=== PATIENT | female | born 1990 | race Caucasian/White ===

== ENCOUNTER 2020-12-16 19:03 | Inpatient (IN) ==
[2020-12-16] MEDS ORDERED: OXYTOCIN 30 UNITS/500 ML BAG IV PRN (20:21)
--- NOTE | 2020-12-16 20:40 | History & Physical Report ---
Date of Service December 16, 2020 Assessment & Plan (1) PROM (premature rupture of membranes): 30 y/o G1 at 38 5/7 wga presenting after SROM VSS Fetus cat 1 Labor - offered ambulation to see if progresses spontaneously or pitocin as she is beatriz, after discussion pt will walk for few hours and recheck. Understands she may still require pitocin after, verbalized understanding GBS neg Epidural PRN History of Present Illness Chief Complaint: LOF Primary Care Provider: Pattie Cummings MD 30 y/o G1 at 38 5/7 wga w/ CELSO 12/25 by LMP c/w 1st tri US presents w/ c/o multiple large gushes of fluid beginning around 5pm this evening. At first thought it was urine, but continued to soak through multiple pairs of pants afterwards. +FM and some back ctx; denies VB PNI: None Past [employer] Hx: G1 Periods q28-30d 05/2020 neg cytology. Reports hx colpo >5 yrs ago and normal since Denies hx STIs Allergies Allergy/AdvReac Type Severity Reaction Status Date / Time No Known Allergies Verified 12/16/20 19:25 Home Medications Medication Instructions Recorded Confirmed Type prenat.vits,enedina,xle-pyhy-rmyog 1 tab PO DAILY 05/21/20 12/16/20 History breast pump #1 ea 10/17/20 12/12/20 Rx Patient History Medical History (Updated 12/16/20 @ 20:37 by Le Hurd MD) Acid reflux no meds Bloody stools only happens when has fast food Surgical History History of esophagogastroduodenoscopy (EGD) History of tonsillectomy History of wisdom tooth extraction Family History Uncle Family history of diabetes mellitus Aunt Family history of diabetes mellitus Grandfather (Paternal) Family history of diabetes mellitus Stroke Grandfather (Maternal) Family history of diabetes mellitus Myocardial infarction Father Family hx colonic polyps Grandmother (Paternal) Breast cancer Other No family history of adverse response to anesthesia Denies family history of Ovarian cancer Prostate cancer Colorectal cancer Social History Smoking Status: Never smoker Second Hand Exposure: No; Hx Alcohol Use: Yes Alcohol type: wine and hard liquor Hx Substance Use: No Preferred Language: Maltese Communication Ability: Effective Physical Biochemist Required: No Beliefs That Will Affect Care: None marital status: marital status details: Ren (28) [phone] Current Living Situation: Spouse Current Living Situation Comment: ilves with spouse, 1 dog, 1 cat, 1 frog, spouse to change litter current occupational status: employed current occupation: [employer]- [employer] Other Information That Helps Us Care for You: No Feels Safe at Home: Yes Safety Concerns: Feels Safe At This Time Assistive Devices: None Physical Exam Constitutional: WD/WN, vitals as above Respiratory: normal respiratory effort; no respiratory distress and no labored breathing Psychiatric: A+Ox3, euthymic affect Genitourinary: OB Exam Abdomen: + vertex (confirmed by BSUS) and + estimated weight (8-9lb) Manual OB Exam: + cervical dilation (1.5), + cervical effacement 70%, + station high and + amniotic fluid (grossly ruptured) clear and nitrazine positive OB Exam Monitor Tracing: + external FHT monitor used, + external uterine monitor used (2-4min) and + category I (140/mod/+accel/-decel) Results & Data ([facility]) Vital Signs (Past 12 Hours) Vital Signs Temp Pulse Resp BP 12/16/20 19:29 76 132/83 12/16/20 19:18 98.1 F 71 18 137/88 Laboratory Results OB Labs: Blood Type A Positive 05/30/20 Antibody Screen NEGATIVE 05/30/20 Hemoglobin 12.4 g/dL (12.0-16.0) 10/03/20 Hematocrit 36.7 % (37-47) L 10/03/20 Mean Corpuscular Volume 90.4 fL (80-100) 05/30/20 Platelet Count 226 K/uL (130-400) 05/30/20 Rubella IgG Antibody Immune (Immune) 05/30/20 Rapid Plasma Reagin Nonreactive (Nonreactive) 05/30/20 Hepatitis B Surface Antigen Neg (Neg) 05/30/20 HIV (1&2) Ab and P24 Ag, 4th Gener Neg (Neg) 05/30/20 Glucose 1 Hour 50 gm Load 112 mg/dl (70-130) 10/03/20 OB Optional Labs: Chlamydia trachomatis RNA NOT DETECTED (NOT DETECTED) 05/22/20 Neisseria gonorrhoeae RNA NOT DETECTED (NOT DETECTED) 05/22/20 Thyroid Stimulating Hormone (TSH) 0.975 uIu/ml (0.300-4.500) 12/20/18 Labs Reviewed: panorama low risk. declines cf/sma declined AFP GBS neg Diagnostic Findings Anterior placenta Code Status & VTE Plan VTE Prophylaxis Plan VTE Prophylaxis will be ordered: Yes Coding Level of Care Code None Diagnoses PROM (premature rupture of membranes) O42.90
[2020-12-16 20:41] LABS: Hematocrit (blood only) 35.4 % (37-47); Hemoglobin 12.2 g/dL (12.0-16.0); Mean Corpuscular Hemoglobin 31.9 pg (25-34); Mean Corpuscular Hgb Conc 34.5 g/dL (32-36); Mean Corpuscular Volume 92.4 fL (80-100); Mean Platelet Volume 12.3 fL (7.4-10.4); Platelet Count 179 K/uL (130-400); RDW Coefficient of Variation 14.1 % (11.5-14.5); RDW Standard Deviation 47.5 fL (36.4-46.3); Red Blood Count 3.83 M/uL (4.2-5.4); White Blood Count 10.93 K/uL (4.8-10.8)
[2020-12-16] MEDS ORDERED: ACETAMINOPHEN 500 MG TAB PO PRN (22:15)
--- NOTE | 2020-12-16 22:15 | Labor Progress Brief Note ---
Date of Service December 16, 2020 Subjective ctx worsening in intensity Assessment & Plan (1) PROM (premature rupture of membranes): 30 y/o G1 at 38 5/7 wga presenting after SROM VSS Fetus cat 1 Labor - was only able to walk for 45 min due to lab getting blood but ctx are getting more painful, there was small progression in change. Can continue to walk some more and see if kicks in GBS neg Epidural PRN Admission and Anticipated Discharge Date Admission Date: December 16, 2020 Physical Exam Constitutional: WD/WN, vitals as above Respiratory: normal respiratory effort; no respiratory distress and no labored breathing Psychiatric: A+Ox3, euthymic affect Genitourinary: Manual OB Exam: + cervical dilation 2 cm, + cervical effacement 70% and + station high OB Exam Monitor Tracing: + external FHT monitor used, + external uterine monitor used (2-5min) and + category I (135/mod/+accel/- decel) Results & Data ([facility]) Vital Signs (Past 12 Hours) Vital Signs Temp Pulse Resp BP 12/16/20 20:36 97.9 F 18 12/16/20 19:29 76 132/83 12/16/20 19:18 98.1 F 71 18 137/88 Coding Level of Care Code None Diagnoses PROM (premature rupture of membranes) O42.90
[2020-12-16] MEDS ORDERED: fentaNYL citrate 100 MCG/2 ML VIAL ONE (23:25)
[2020-12-16] MEDS ORDERED: BUPIVACAINE 0.25% 30 ML VIAL ONE (23:25)
[2020-12-16] MEDS ORDERED: SODIUM CHLORIDE 0.9% INJ 10 ML VIAL ONE (23:25)
[2020-12-16] MEDS ORDERED: ePHEDrine sulfate 50 MG/ML AMP ONE (23:25)
[2020-12-16] MEDS: LACTATED RINGER'S 1,000 ML IV PRN (23:26)
[2020-12-16] MEDS ORDERED: fentaNYL 2MCG/ML ROPIVACAINE 1.25MG/ML 100 ML BAG EPI ONE (23:26)
[2020-12-16] MEDS ORDERED: NALOXONE HCL 1 MG in SODIUM CHLORIDE 0.9% 1000ML 1,000 ML IV PRN (23:51)
[2020-12-16] MEDS ORDERED: fentaNYL 2MCG/ML ROPIVACAINE 1.25MG/ML 100 ML BAG EPI PRN (23:51)
[2020-12-16] MEDS ORDERED: ePHEDrine sulfate 50 MG/ML AMP IV PRN (23:51)
[2020-12-16] MEDS ORDERED: ONDANSETRON INJ 2 MG/ML 2 ML VIAL IV PRN (23:51)
[2020-12-16] MEDS ORDERED: diphenhydrAMINE 50 MG/ML VIAL IV PRN (23:51)
[2020-12-16] MEDS ORDERED: NALOXONE HCL 0.4 MG/1 ML VIAL/CARP IV PRN (23:51)
--- NOTE | 2020-12-16 23:51 | Anesthesiology Consultation ---
Date of Service December 16, 2020 Assessment & Plan (1) Encounter for pre-operative examination: Chart Review Chart Review: Acceptable Risk for Surgery Consults Requested none History Height/Weight Height: 5 ft 6 in Weight: 81.647 kg Allergies Allergy/AdvReac Type Severity Reaction Status Date / Time No Known Allergies Verified 12/16/20 19:25 Medications Home Medications Medication Instructions Recorded Confirmed Last Taken prenat.vits,enedina,kpn-uhya-mbpjz 1 tab PO DAILY 05/21/20 12/16/20 12/16/20 08:00 breast pump #1 ea 10/17/20 12/12/20 Unknown Active Medications Generic Name Dose Route Start Last Admin Trade Name Freq PRN Reason Stop Dose Admin Acetaminophen 1,000 mg 12/16/20 22:15 12/16/20 23:17 Acetaminophen 500 Mg Tab PO 01/15/21 22:14 1,000 mg Q6H PRN Administration Pain Lactated Ringer's 1,000 mls @ 125 mls/hr 12/16/20 20:21 12/16/20 23:26 Lr IV 12/18/20 20:20 999 mls/hr .Q8H PRN Administration L&D Protocol Protocol Past Medical History Medical History Acid reflux no meds Bloody stools only happens when has fast food Past Family History Family History Uncle Family history of diabetes mellitus Aunt Family history of diabetes mellitus Grandfather (Paternal) Family history of diabetes mellitus Stroke Grandfather (Maternal) Family history of diabetes mellitus Myocardial infarction Father Family hx colonic polyps Grandmother (Paternal) Breast cancer Other No family history of adverse response to anesthesia Denies family history of Ovarian cancer Prostate cancer Colorectal cancer Past Surgical History Surgical History History of esophagogastroduodenoscopy (EGD) History of tonsillectomy History of wisdom tooth extraction Social History Smoking Status: Never smoker Hx Alcohol Use: Yes Alcohol type: wine and hard liquor alcohol intake frequency: holidays/special occasions only Hx Substance Use: No substance use type: does not use Physical Exam Vital Signs Last Vital Signs Temp 36.4 C L 12/16/20 23:14 Pulse 82 12/16/20 23:14 Resp 20 12/16/20 23:14 BP 139/83 12/16/20 23:14 Testing Laboratory Results 12/16/20 20:30
[2020-12-17] MEDS ORDERED: OXYTOCIN 30 UNITS/500 ML BAG IV PRN ×2 (01:16→07:57)
--- NOTE | 2020-12-17 01:16 | Labor Progress Brief Note ---
Date of Service December 17, 2020 Subjective comfortable after epidural Assessment & Plan (1) PROM (premature rupture of membranes): 30 y/o G1 at 38 5/7 wga presenting after SROM VSS Fetus cat 1 Labor - continuing to progress spontaneously, augment if SVE does not continue progressing GBS neg Epidural in place Admission and Anticipated Discharge Date Admission Date: December 16, 2020 Physical Exam Constitutional: WD/WN, vitals as above Respiratory: normal respiratory effort; no respiratory distress and no labored breathing Psychiatric: A+Ox3, euthymic affect Genitourinary: Manual OB Exam: + cervical dilation (3-4), + cervical effacement 70% and + station -2 OB Exam Monitor Tracing: + external FHT monitor used, + external uterine monitor used (2-6min) and + category I (145/mod/+accel/-decel) Results & Data ([facility]) Vital Signs (Past 12 Hours) Vital Signs Temp Pulse Resp BP Pulse Ox 12/17/20 01:11 78 94 12/17/20 01:09 77 96 12/17/20 01:04 87 97 12/17/20 01:02 75 106/53 L 12/17/20 00:59 84 107/59 L 96 12/17/20 00:54 78 97 12/17/20 00:53 97.9 F 18 12/17/20 00:51 72 99/54 L 12/17/20 00:49 82 97 12/17/20 00:48 76 101/58 L 12/17/20 00:45 85 92/58 L 12/17/20 00:44 86 97 12/17/20 00:42 78 107/58 L 12/17/20 00:39 80 107/56 L 95 12/17/20 00:36 79 18 108/58 L 12/17/20 00:34 81 96 12/17/20 00:33 83 20 107/58 L 12/17/20 00:30 91 H 116/61 12/17/20 00:29 90 96 12/17/20 00:27 75 130/77 12/17/20 00:24 80 137/81 97 12/17/20 00:22 87 92 12/17/20 00:21 88 129/77 12/17/20 00:19 81 99 12/17/20 00:18 94 H 20 142/81 H 12/17/20 00:15 83 20 137/80 12/17/20 00:14 85 99 12/17/20 00:07 86 100 12/17/20 00:02 96 H 97 12/16/20 23:57 79 99 12/16/20 23:52 78 100 12/16/20 23:14 97.5 F L 82 20 139/83 12/16/20 20:36 97.9 F 18 12/16/20 19:29 76 132/83 12/16/20 19:18 98.1 F 71 18 137/88 Coding Level of Care Code None Diagnoses PROM (premature rupture of membranes) O42.90
[2020-12-17] MEDS: LACTATED RINGER'S 1,000 ML IV PRN (01:52)
--- NOTE | 2020-12-17 07:47 | Delivery Summary ---
Vaginal Delivery Summary Date of Service December 17, 2020 PREOPERATIVE DIAGNOSIS: 1. Single intrauterine at 38 6/7 weeks gestation 2. Spontaneous rupture of membranes POSTOPERATIVE DIAGNOSIS: 1. Single intrauterine at 38 6/7 weeks gestation 2. Spontaneous rupture of membranes 3. Delivered PROCEDURE: 1. Normal spontaneous vaginal delivery. SURGEON: Le Hurd MD ANESTHESIA: Epidural. ESTIMATED BLOOD LOSS: 300 mL FLUIDS: Continuous LR. URINE OUTPUT: None. COMPLICATIONS: None. CONDITION: Stable. INDICATIONS: 30 y/o G1 at 38 6/7 wga presented last evening with LOF. +FM, denied VB. Began having some contractions on arrival. She progressed spontaneously to 3-4 cm and received an epidural for pain control. She then needed pitocin for augmentation and subsequently progressed to complete and desired to push. FINDINGS: A viable female with Apgars of 8 and 8 at 1 and 5 minutes respectively. SPECIMEN: Cord blood OPERATIVE REPORT: The patient progressed to 10 cm, 100% effaced and +2 station, pushed over intact perineum with anesthesia to deliver a viable male , Apgars as above. Head of delivered in SHEYLA position. No nuchal cord was present. Body and shoulders were delivered without difficulty. was delivered to maternal abdomen and nursing staff. Delayed cord clamping was performed for 60 seconds. Cord was clamped and cut. Cord blood was obtained. Placenta delivered spontaneously intact with 3-vessel cord. IV oxytocin and fundal massage were given for excellent hemostasis. Vagina, cervix, perineum, and placenta were inspected. A second degree laceration was noted and repaired in the usual fashion using 3-[address]-1. Sponge and needle counts correct x2. No sponges were left behind. Mother and stable in immediate period. Vaginal Delivery Summary and 2nd Degree [facility] Vaginal Delivery Charge Vaginal Delivery Codes: 45511 global code for the antepartum, delivery, and post- Delivery Type Details: and 2nd Degree [facility]
[2020-12-17] MEDS ORDERED: DIPHTHERIA/TETANUS/PERTUSSIS 0.5 ML SYR/VIAL IM ONE (07:57)
[2020-12-17] MEDS ORDERED: BENZOCAINE 20% AER SPR 82.5 GM CAN EXT PRN (07:57)
[2020-12-17] MEDS ORDERED: HYDROCORTISONE ACETATE 25 MG SUPP PR PRN (07:57)
[2020-12-17] MEDS ORDERED: LACTATED RINGER'S 1,000 ML IV SCH (07:57)
[2020-12-17] MEDS ORDERED: SUPERCREAM 0.870% 15 GM JAR EXT PRN (07:57)
[2020-12-17] MEDS ORDERED: ACETAMINOPHEN 325 MG TAB PO PRN (07:57)
[2020-12-17] MEDS ORDERED: bisacodyL 10 MG SUPP PR PRN (07:57)
[2020-12-17] MEDS: DOCUSATE SODIUM 100 MG CAP PO SCH ×2 (09:05→21:20)
[2020-12-17] MEDS: PRENATAL VITAMIN 1 TAB PO SCH (09:05)
[2020-12-17] MEDS: IBUPROFEN 600 MG TAB PO PRN ×4 (09:05→22:35)
--- NOTE | 2020-12-17 10:08 | Anesthesia Procedure Note ---
Date of Service December 17, 2020 Anesthesia Post Epidural Note Vital Signs Vital Signs: Temp Pulse Resp BP Pulse Ox 36.6 C 111 H 20 130/68 97 12/17/20 05:28 12/17/20 09:53 12/17/20 09:37 12/17/20 09:53 12/17/20 06:54 Notes Mental Status: alert / awake / arousable Nausea / Vomiting: adequately controlled Pain: adequately controlled Airway Patency, RR, SpO2: stable & adequate BP & HR: stable & adequate Hydration State: stable & adequate Neuraxial Anesthesia: was administered and sensory block is resolving Anesthetic Complications: no major complications apparent and Pt Satisfied with anesthetic care Epidural: Removed without complications and With tip intact
[2020-12-18] MEDS: IBUPROFEN 600 MG TAB PO PRN ×2 (02:18→07:31)
[2020-12-18 06:24] LABS: Hematocrit (blood only) 26.6 % (37-47); Mean Corpuscular Hemoglobin 31.7 pg (25-34); Mean Corpuscular Hgb Conc 33.8 g/dL (32-36); Mean Corpuscular Volume 93.7 fL (80-100); Mean Platelet Volume 10.8 fL (7.4-10.4); Platelet Count 132 K/uL (130-400); RDW Coefficient of Variation 14.3 % (11.5-14.5); RDW Standard Deviation 48.7 fL (36.4-46.3); Red Blood Count 2.84 M/uL (4.2-5.4); White Blood Count 10.55 K/uL (4.8-10.8)
--- NOTE | 2020-12-18 07:20 | Obstetrical Progress Note ---
Date of Service <Mireya Pulido DO - Last Filed: 12/18/20 07:57> December 18, 2020 Assessment & Plan <Mireya Pulido DO - Last Filed: 12/18/20 07:57> (1) state: PPD #1 - PNL: Rh pos, RI, GBS neg, COVID neg - Feels well today. Eating well, voiding well, ambulating well. - Pain well controlled with ibuprofen 600mg Q4H PRN - Routine care -- OOB, ambulation, diet progression as tolerated - Hgb 9.0 today (down from 12.2 yesterday). Patient asymptomatic without lightheadedness, RODRIGUEZ, CP, SOB. Will start patient on iron 325mg po daily. - After discharge will have 6 week follow-up with Dr. Hurd. - Patient does request d/c home today. Subjective <Mireya Pulido DO - Last Filed: 12/18/20 07:57> Kate Cortez is a 30 y/o female who is PPD #1 following spontaneous vaginal delivery after prom at 38+6 weeks. She reports feeling well overall this morning. Mild abdominal cramping and 5/10 pain well managed on analgesics. Voiding without dysuria. Tolerating meals overnight without difficulty. Patient has been able to ambulate some. She is passing gas and had a small bowel movement. Has persistent lochia with some improvement this morning. Currently . Review of Systems Denies fever or chills. Denies shortness of breath or cough. Denies chest pain. Denies breast pain. Denies dysuria. Denies leg pain or leg swelling. Denies headache or changes in vision. Physical Exam <Mireya Pulido DO - Last Filed: 12/18/20 07:57> General: Alert, oriented. No acute distress. Cardiac: Regular rate and rhythm. No murmurs. Respiratory: Clear to auscultation bilaterally a/p, no wheezes/rales/rhonchi. No increased work of breathing. Symmetrical chest rise. No respiratory distress. Abdomen: Soft, nontender, nondistended. Bowel sounds present. Uterus: Uterine fundus firm, palpable 1 cm below umbilicus. Lower Extremities: No lower extremity edema or swelling. No deep calf pain. Walker's negative bilaterally. Results & Data ([facility]) <Mireya Pulido DO - Last Filed: 12/18/20 07:57> Vital Signs (Past 12 Hours) Vital Signs Temp Pulse Resp BP Pulse Ox 12/18/20 03:10 36.9 C 105 H 20 111/75 95 12/17/20 23:40 36.7 C 89 20 126/84 98 12/17/20 19:30 36.8 C 100 H 20 130/79 Laboratory Results 12/18/20 Range/Units 06:00 WBC 10.55 (4.8-10.8) K/uL RBC 2.84 L (4.2-5.4) M/uL Hgb 9.0 L D (12.0-16.0) g/dL Hct 26.6 L (37-47) % MCV 93.7 (80-100) fL MCH 31.7 (25-34) pg MCHC 33.8 (32-36) g/dL RDW Std Deviation 48.7 H (36.4-46.3) fL RDW Coeff of Daniel 14.3 (11.5-14.5) % Plt Count 132 (130-400) K/uL MPV 10.8 H (7.4-10.4) fL <Sheryl Rico MD, FACOG - Last Filed: 12/18/20 08:02> Co-Signing Physician Notes Resident Physician Supervision Note: I was present with Dr. Pulido during the history and exam. I discussed the case with the resident and agree with the findings and plan as documented in the note. Any exceptions or clarifications are listed here: stable routine care. desires d/c home, instructions reviewed by resident and pt denies questions or concerns. she will plan 6wk pp check. Documented By: Sheryl Rico MD, FACOG Resident Activity Tracking <Mireya Pulido DO - Last Filed: 12/18/20 07:57> Resident Involvement: Resident Care Provided Care Provided: OB Delivery
[2020-12-18] MEDS: DOCUSATE SODIUM 100 MG CAP PO SCH (07:31)
[2020-12-18] MEDS: PRENATAL VITAMIN 1 TAB PO SCH (07:31)
[2020-12-18] MEDS: FERROUS SULFATE 325 MG TAB PO SCH (10:51)
[2020-12-18] MEDS ORDERED: bisacodyL 5 MG TABEC PO SCH (20:00)
[2020-12-19] MEDS: IBUPROFEN 600 MG TAB PO PRN ×3 (00:03→08:40)
--- NOTE | 2020-12-19 07:58 | Obstetrical Progress Note ---
Date of Service <Mireya Pulido DO - Last Filed: 12/19/20 07:58> December 19, 2020 Assessment & Plan <Mireya Pulido DO - Last Filed: 12/19/20 07:58> (1) state: PPD #2 - PNL: Rh pos, RI, GBS neg, COVID neg - Feels well today. Eating well, voiding well, ambulating well. - Pain well controlled with ibuprofen 600mg Q4H PRN - Routine care -- OOB, ambulation, diet progression as tolerated - Hgb 9.0 yesterday (12/18) (down from 12.2 prior to delivery). Continue iron 325mg po daily. - After discharge will have 6 week follow-up with Dr. Hurd. - Plan for discharge home today. Subjective <Mireya Pulido DO - Last Filed: 12/19/20 07:58> Kate Cortez is a 30 y/o female who is PPD #2 following spontaneous vaginal delivery at 38+6 weeks. She reports feeling well overall this morning. Mild abdominal cramping and 4/10 pain well managed on analgesics. Voiding without dysuria. Tolerating meals overnight without difficulty, nausea, or vomiting. Patient has been able to ambulate some. She is passing gas and has had 2 bowel movements. Has persistent lochia with some improvement this morning. Currently . Review of Systems Denies fever or chills. Denies shortness of breath or cough. Denies chest pain. Denies breast pain. Denies dysuria. Denies leg pain or leg swelling. Denies headache or changes in vision. Physical Exam <Mireya Pulido DO - Last Filed: 12/19/20 07:58> General: Alert, oriented. No acute distress. Cardiac: Regular rate and rhythm. No murmurs. Respiratory: Clear to auscultation bilaterally a/p, no wheezes/rales/rhonchi. No increased work of breathing. Symmetrical chest rise. No respiratory distress. Abdomen: Soft, nontender, nondistended. Bowel sounds present. Uterus: Uterine fundus firm, palpable 2 cm below umbilicus. Lower Extremities: No lower extremity edema or swelling. No deep calf pain. Walker's negative bilaterally. Results & Data ([facility]) <Mireya Pulido, - Last Filed: 12/19/20 07:58> Vital Signs (Past 12 Hours) Vital Signs Temp Pulse Resp BP 12/19/20 00:00 36.6 C 86 18 116/71 <Tita Talley, - Last Filed: 12/19/20 08:21> Co-Signing Physician Notes Resident Physician Supervision Note: I was present with Dr. Pulido during the history and exam. I discussed the case with the resident and agree with the findings and plan as documented in the note. Any exceptions or clarifications are listed here: PPD#2 doing well. DC instructions reviewed. Documented By: Tita Talley DO Resident Activity Tracking <Mireya Pulido, - Last Filed: 12/19/20 07:58> Resident Involvement: Resident Care Provided Care Provided: OB Delivery
[2020-12-19] MEDS: DOCUSATE SODIUM 100 MG CAP PO SCH (08:41)
[2020-12-19] MEDS: PRENATAL VITAMIN 1 TAB PO SCH (08:41)
[2020-12-19] MEDS: FERROUS SULFATE 325 MG TAB PO SCH (08:41)
--- NOTE | 2021-01-04 08:15 | Coding Query ---
ANEMIA To promote full compliance with coding requirements relating to patient care, physician participation is requested in all cases of park worker supervisor uncertainty. Please assist us with the question(s) below: Coding Question(s): The record reflects the following clinical findings: Hgb 9.0 yesterday (12/18) (down from 12.2 prior to delivery). Continue iron 325mg po daily. If these findings are indicative of anemia, please specify the known or suspected type by placing an "X" within the parenthesis (x). If other, please document type. Examples are: (X ) Acute blood loss anemia ( ) Iron deficient anemia ( ) Iron deficient anemia due to chronic blood loss ( ) Iron deficient anemia due to acute blood loss ( ) Anemia, unspecified or other ( ) Other: (please specify) ( ) Unable to determine Also, was this condition ( ) POA ( ) Not POA ( ) Unable to determine Thank you for your time, CELIA Rudd, [facility]
== END 2020-12-19 14:48 | disposition home or self-care (01) | DRG 806 ==
LOC: OPB 19:03 → 4S1 19:05 → 4S2 12-17 12:04

== ENCOUNTER 2025-06-10 05:33 | Inpatient (IN) ==
[2025-06-10] MEDS ORDERED: ACETAMINOPHEN 325 MG TAB PO PRN ×2 (06:05→07:23)
[2025-06-10] MEDS ORDERED: OXYTOCIN 30 UNITS/NSS 30 UNITS/500 ML BAG IV PRN ×2 (06:05→07:23)
[2025-06-10] MEDS ORDERED: LIDOCAINE 1% LOCAL 20 ML VIAL INFIL PRN (06:05)
[2025-06-10] MEDS ORDERED: LACTATED RINGER'S 1,000 ML IV PRN (06:05)
--- NOTE | 2025-06-10 07:13 | Delivery Summary ---
Vaginal Delivery Summary Date of Service June 10, 2025 Vaginal Delivery Summary DIAGNOSES: 1. Jackson intrauterine at 40w1d gestation. 2. Spontaneous onset of labor. 3. Group B Streptococcus Neg. PROCEDURE: Spontaneous vaginal delivery and repair of second degree laceration. SURGEON: Tara Vergara MD. OPTICIAN APPRENTICE: None. ESTIMATED BLOOD LOSS: 104 mL. COMPLICATIONS: None. PLACENTA: Spontaneous and intact with a 3-vessel cord. DISPOSITION: Stable to labor and delivery. DESCRIPTION: The patient pushed well and brought the head to in OA position. The infant's head was allowed to deliver with contraction force and no further active pushing, with the perineum protected during this time. There was one nuchal cord. The left shoulder was anterior. The shoulders and body delivered without any difficulty, and the infant was placed on the maternal abdomen. It was vigorous and moving all extremities, and making respiratory efforts. The cord was doubly clamped by the MD and then cut by the FOB. The placenta delivered spontaneously and was noted to be intact and with a 3VC. The cervix, vagina and perineum were examined and were found to have a separation of her prior perineal scar, which was hemostatic but required repair. This was infiltrated with lidocaine and closed with vicryl suture. The fundus was firm and lochia minimal immediately after delivery. [facility] Vaginal Delivery Charge Vaginal Delivery Codes: 00663 global code for the antepartum, delivery, and post-
[2025-06-10 07:19] LABS: Hematocrit (blood only) 36.7 % (37.0-47.0); Hemoglobin 12.1 g/dl (12.0-16.0); Mean Corpuscular Hemoglobin 30.0 pg (25.0-34.0); Mean Corpuscular Volume 91.1 fL (80.0-100.0); Platelet Count 161 K/uL (130-400); RDW Standard Deviation 50.3 fL (36.4-46.3); Red Blood Count 4.03 M/uL (4.20-5.40); White Blood Count 11.39 K/ul (4.8-10.8)
[2025-06-10] MEDS ORDERED: HYDROCORTISONE ACETATE 25 MG SUPP PR PRN (07:23)
[2025-06-10] MEDS: DIPHTHER/TETAN/PERTUS Vaccine (Tdap, Adol/Adult) 0.5mL IM ONE (07:43)
[2025-06-10] MEDS: BENZOCAINE 20% SPRY 85 APPLN/85 GM CAN EXT PRN (08:06)
[2025-06-10] MEDS: PRENATAL VITAMIN 1 TAB PO SCH (08:06)
[2025-06-10] MEDS: DOCUSATE SODIUM 100 MG CAP PO SCH (08:06)
[2025-06-10] MEDS: IBUPROFEN 600 MG TAB PO PRN (08:38)
[2025-06-10 22:31] VITALS: RESP 16
[2025-06-11] MEDS: OXYTOCIN 10 UNITS/ML VIAL ONE (00:34)
[2025-06-11 07:20] LABS: Hematocrit (blood only) 33.1 % (37.0-47.0); Hemoglobin 10.6 g/dl (12.0-16.0); Mean Corpuscular Hemoglobin 29.7 pg (25.0-34.0); Mean Corpuscular Volume 92.7 fL (80.0-100.0); Platelet Count 145 K/uL (130-400); RDW Standard Deviation 51.5 fL (36.4-46.3); Red Blood Count 3.57 M/uL (4.20-5.40); White Blood Count 8.88 K/ul (4.8-10.8)
[2025-06-11 08:01] VITALS: BP 117/74; PULSE 98; TEMP 97.7; O2SAT 98
--- NOTE | 2025-06-11 09:23 | Obstetrical Progress Note ---
Date of Service June 11, 2025 Assessment & Plan (1) Encounter for assessment: Plan Desires d/c home. Meeting milestones. Instructions reviewed. f/u in 6 weeks for pp visit. Day #:: 1 Subjective Ambulation: ambulating normally Voiding: no voiding problems Passing Gas:: Yes Diet Tolerance:: regular diet Lochia:: Small Feeding Type:: breast feeding Pain controlled Physical Exam Constitutional WD/WN, vitals as above Respiratory normal respiratory effort, lungs clear to auscultation Cardiovascular RRR, no murmur, no edema Extremities: no calf tenderness and no edema Gastrointestinal (Abdomen) soft, nt, nd, ff/nt 1 below u Psychiatric A+Ox3, euthymic affect Results & Data Vital Signs (Past 12 Hours) Vital Signs Temp Pulse Resp BP Pulse Ox O2 Del Method 06/11/25 07:25 36.5 C 98 H 16 117/74 98 Room Air 06/11/25 04:00 36.7 C 80 16 99/63 L Room Air 06/11/25 00:15 36.6 C 88 16 119/72 96 Room Air
== END 2025-06-11 14:25 | disposition home or self-care (01) | DRG 807 ==
LOC: OPB 05:33 → 4S1 05:37 → 4E2 09:13